=== PATIENT | female | born 1935 | race Caucasian/White ===

== ENCOUNTER → 2016-10-02 | Outpatient (CLI) | payer MEDICARE ==
[~2016-10-02] MED LIST: ASPE4PAD TOP; CALTTAB11 PO; CENTTAB PO; CLAR10CA3 PO; ECOT81TA5 PO; OSTETAB3 PO; TRAM50TA2 PO; TYLE650T35 PO; VITA100066 PO
--- NOTE | 2016-10-02 11:44 | REP ---
REASON: Preoperative assessment. COMPARISON: 09/23/2006 The heart size is borderline, essentially unchanged. The lung gomes are stable showing no evidence of an acute patchy parenchymal opacity or pleural effusion. The pleural angles are sharp. There is no change in the osseous structures. IMPRESSION: No evidence of acute cardiopulmonary disease or significant change from the prior exam with findings as described above. Signed by Matheus Chung DO 10/02/2016 12:24 P
[2016-10-02 11:53] LABS: INR 0.99; MEAN CORPUSCULAR HEMOGLOBIN 29.6 pg (27.0-33.0); MEAN CORPUSCULAR HGB CONC 32.8 g/dl (32.0-36.5); MEAN CORPUSCULAR VOLUME 90.4 fl (80.0-96.0); WHITE BLOOD COUNT 6.8 K/mm3 (4.0-10.0)
[2016-10-02 12:19] LABS: ALBUMIN 4.1 GM/DL (3.2-5.2); ALBUMIN/GLOBULIN RATIO 1.14 (1.00-1.93); ALKALINE PHOSPHATASE 85 U/L (45-117); ALT/SGPT 28 U/L (12-78); ANION GAP 7 MEQ/L (8-16); AST/SGOT 27 U/L (15-37); BILIRUBIN,TOTAL 0.5 MG/DL (0.2-1.0); BLOOD UREA NITROGEN 10 MG/DL (7-18); CALCIUM LEVEL 10.1 MG/DL (8.8-10.2); CARBON DIOXIDE LEVEL 28 MEQ/L (21-32); CHLORIDE LEVEL 102 MEQ/L (98-107); CREATININE FOR GFR 0.59 MG/DL (0.55-1.02); GLOMERULAR FILTRATION RATE > 60.0 (>32); GLUCOSE, FASTING 109 MG/DL (83-110); POTASSIUM SERUM 3.9 MEQ/L (3.5-5.1); SODIUM LEVEL 137 MEQ/L (136-145); TOTAL PROTEIN 7.7 GM/DL (6.4-8.2)
--- NOTE | 2016-10-02 20:55 | ECGEPIP ---
Stationary ECG Study [facility] Test Date: 2016-10-02 Pat Name: YAJAIRA DORADO Department: Room: - Gender: F [employer] Professional: KT : 1935 Requested By: Erick Mckeon Order Number: [id number] Reading MD: Elia Trujillo Measurements Intervals [place] Rate: 87 P: 68 OR: 154 QRS: 50 QRSD: 93 T: 14 QT: 361 QTc: 436 Interpretive Statements SINUS RHYTHM WITH SINUS ARRHYTHMIA MINIMAL VOLTAGE CRITERIA FOR LVH, CONSIDER NORMAL VARIANT Nonspecific ST-T abnormalities. Electronically Signed On 10-02-2016 20:55:03 EDT by Elia Trujillo
== END ==
LOC: M ADMPAT 09:04
PROVIDERS: ATTEND Orthopaedic Surgery
DX: Z79.899 Other long term (current) drug therapy (principal)

== ENCOUNTER 2016-10-13 07:58 | Inpatient (IN) | payer MEDICARE ==
[2016-10-02 09:47] VITALS: BP 142/78
[~2016-10-13] VITALS: Ht 154.9 cm; Wt 52.0 kg
[2016-10-13] VITALS (7 sets, daily range): BP systolic 122–198; BP diastolic 64–85
[2016-10-13] MEDS ORDERED: CLINDAMYCIN 600 MG in APPROPRIATE DILUENT 1 EA IV ONE (08:30)
[2016-10-13] MEDS ORDERED: LR 1,000 ML IV ONE (08:30)
[2016-10-13] MEDS ORDERED: VITA10006 PO (09:04)
[2016-10-13] MEDS ORDERED: MIDAZOLAM INJ 2 MG/2 ML VIAL (J2250) As Ordered ONE (09:32)
[2016-10-13] MEDS ORDERED: fentaNYL 100 MCG/2 ML INJECTION (J3010) As Ordered ONE ×2 (09:32→10:20)
[2016-10-13] MEDS ORDERED: TRANEXAMIC ACID 100 MG/ML 10ML VIAL As Ordered ONE ×2 (10:19→10:46)
[2016-10-13] MEDS ORDERED: BUPIVACAINE HCL 0.25% 30 ML VIAL As Ordered ONE (10:20)
[2016-10-13] MEDS ORDERED: EPINEPHrine INJ 1 MG/ML 1ML AMP As Ordered ONE (10:20)
[2016-10-13] MEDS ORDERED: ceFAZolin 1GM INJ (J0690) As Ordered ONE (10:20)
[2016-10-13] MEDS ORDERED: CLINDAMYCIN INJ 900MG/6ML VIAL As Ordered ONE (10:22)
[2016-10-13] MEDS ORDERED: PATIENT IS CURRENTLY ON AN ON-Q PAIN BUSTER PAIN RELIEF SYSTEM XX SCH ×2 (10:30→12:45)
[2016-10-13] MEDS ORDERED: ePHEDrine SULFATE 25 MG/5 ML(5MG/ML) SYRINGE As Ordered ONE (11:14)
[2016-10-13] MEDS ORDERED: PHENYLephrine HCL 500 MCG/5 ML (100MCG/ML) SYRINGE (J2370) As Ordered ONE (11:15)
[2016-10-13] MEDS ORDERED: PROPOFOL 200 MG/20 ML VIAL As Ordered ONE (11:32)
[2016-10-13] MEDS ORDERED: MORPHINE 1MG/ML IN 0.9% NACL 100ML IV BAG As Ordered ONE (12:20)
[2016-10-13] MEDS ORDERED: NALBUPHINE HCL 10 MG/ML AMP (J2300) IV PRN (12:45)
[2016-10-13] MEDS ORDERED: MORPHINE 1MG/ML IN 0.9% NACL 100ML IV BAG IV PRN (12:45)
[2016-10-13] MEDS ORDERED: ONDANSETRON 4MG/2ML VIAL (J2405) IV PRN ×3 (12:45)
[2016-10-13] MEDS ORDERED: diphenhydrAMINE INJ 50MG/ML VIAL (J1200) IV PRN (12:45)
[2016-10-13] MEDS ORDERED: NALOXONE INJ 0.4 MG/1 ML VIAL (J2310) IV PRN (12:45)
[2016-10-13] MEDS: LR 1,000 ML IV SCH (12:45)
[2016-10-13] MEDS ORDERED: LR 1,000 ML IV SCH (12:45)
[2016-10-13] MEDS ORDERED: EPIDURAL/PCA KEYS XX PRN (12:45)
[2016-10-13] MEDS ORDERED: FLEET ENEMA PR PRN (14:30)
[2016-10-13] MEDS ORDERED: diphenhydrAMINE 25 MG CAP PO PRN (16:30)
[2016-10-13] MEDS ORDERED: PERCOCET 5MG/325MG TAB PO PRN ×2 (16:30)
[2016-10-13] MEDS ORDERED: ONDANSETRON 4 MG TAB (S0181) PO PRN (16:30)
[2016-10-13] MEDS ORDERED: WARFARIN SOD 5 MG TAB PO ONE (17:00)
[2016-10-13] MEDS: CLINDAMYCIN 600 MG in APPROPRIATE DILUENT 1 EA IV SCH (18:34)
[2016-10-13] MEDS: ACETAMINOPHEN TAB 650MG DOSE (2X325MG) PO PRN (18:35)
[2016-10-13] MEDS: KETOROLAC 30 MG/ML VIAL (J1885) IV SCH (20:30)
[2016-10-14] MEDS: KETOROLAC 30 MG/ML VIAL (J1885) IV SCH ×3 (01:56→14:00)
[2016-10-14 02:00] VITALS: BP 158/72
[2016-10-14] MEDS: LR 1,000 ML IV SCH (02:05)
[2016-10-14] MEDS: CLINDAMYCIN 600 MG in APPROPRIATE DILUENT 1 EA IV SCH (02:42)
[2016-10-14 06:00] VITALS: BP 131/63
[2016-10-14 06:31] LABS: MEAN CORPUSCULAR HEMOGLOBIN 30.2 pg (27.0-33.0); MEAN CORPUSCULAR VOLUME 91.6 fl (80.0-96.0); RED CELL DISTRIBUTION WIDTH 15.1 % (11.5-14.5); WHITE BLOOD COUNT 8.8 K/mm3 (4.0-10.0)
[2016-10-14 06:40] LABS: INR 1.62
[2016-10-14 07:04] LABS: ANION GAP 4 MEQ/L (8-16); BLOOD UREA NITROGEN 11 MG/DL (7-18); CARBON DIOXIDE LEVEL 34 MEQ/L (21-32); CHLORIDE LEVEL 99 MEQ/L (98-107); CREATININE FOR GFR 0.67 MG/DL (0.55-1.02); GLOMERULAR FILTRATION RATE > 60.0 (>32); GLUCOSE, FASTING 120 MG/DL (83-110); POTASSIUM SERUM 4.1 MEQ/L (3.5-5.1); SODIUM LEVEL 137 MEQ/L (136-145)
[2016-10-14] MEDS ORDERED: traMADol 50 MG TAB PO PRN ×2 (07:15)
[2016-10-14] MEDS: MIRALAX *UNIT DOSE* 17GM PACKET PO SCH (08:57)
[2016-10-14] MEDS: SENOKOT S TAB PO SCH ×2 (08:58→20:18)
[2016-10-14] MEDS: MOM 30ML SUSPENSION UDC PO SCH (08:58)
[2016-10-14 10:00] VITALS: BP 125/59
[2016-10-14 14:00] VITALS: BP 141/65
[2016-10-14] MEDS ORDERED: WARFARIN SOD 5 MG TAB PO ONE (17:00)
[2016-10-14 22:00] VITALS: BP 146/70
[2016-10-15 06:00] VITALS: BP 130/60
[2016-10-15 06:50] LABS: MEAN CORPUSCULAR HEMOGLOBIN 30.2 pg (27.0-33.0); MEAN CORPUSCULAR HGB CONC 32.9 g/dl (32.0-36.5); MEAN CORPUSCULAR VOLUME 91.9 fl (80.0-96.0); WHITE BLOOD COUNT 10.3 K/mm3 (4.0-10.0)
[2016-10-15 06:58] LABS: INR 2.52
[2016-10-15] MEDS: MIRALAX *UNIT DOSE* 17GM PACKET PO SCH ×2 (09:00→09:36)
[2016-10-15] MEDS: MOM 30ML SUSPENSION UDC PO SCH (09:36)
[2016-10-15] MEDS: SENOKOT S TAB PO SCH ×2 (09:36→20:53)
[2016-10-15 14:00] VITALS: BP 131/63
[2016-10-15] MEDS: ACETAMINOPHEN TAB 650MG DOSE (2X325MG) PO PRN ×2 (15:50→20:53)
[2016-10-15 21:21] VITALS: O2SAT 96
[2016-10-15 22:00] VITALS: BP 115/55
[2016-10-16] MEDS: ACETAMINOPHEN TAB 650MG DOSE (2X325MG) PO PRN ×5 (03:54→23:53)
[2016-10-16 06:00] VITALS: BP 137/69
[2016-10-16 07:22] LABS: BASO % 0.4 % (0.0-1.0); EOS # 0.1 K/mm3 (0.0-0.50); EOS % 1.3 % (0.0-3.0); LARGE UNSTAINED CELL # 0.1 K/mm3 (0.0-0.4); LARGE UNSTAINED CELL % 1.2 % (0.0-4.0); LYMPH # 1.2 K/mm3 (1.5-4.5); LYMPH % 12.6 % (24.0-44.0); MEAN CORPUSCULAR HEMOGLOBIN 29.8 pg (27.0-33.0); MEAN CORPUSCULAR HGB CONC 32.7 g/dl (32.0-36.5); MEAN CORPUSCULAR VOLUME 91.2 fl (80.0-96.0); MONO # 0.6 K/mm3 (0.0-0.8); MONO % 5.8 % (0.0-5.0); NEUTROPHILS # 7.7 K/mm3 (1.8-7.7); NEUTROPHILS % 78.6 % (36.0-66.0); PLATELET COUNT, AUTOMATED 261 k/mm3 (150-450); RED CELL DISTRIBUTION WIDTH 14.7 % (11.5-14.5); WHITE BLOOD COUNT 9.8 K/mm3 (4.0-10.0)
[2016-10-16 07:29] LABS: INR 1.67
[2016-10-16] MEDS: MOM 30ML SUSPENSION UDC PO SCH (08:34)
[2016-10-16] MEDS: SENOKOT S TAB PO SCH ×2 (08:34→20:20)
[2016-10-16] MEDS: MIRALAX *UNIT DOSE* 17GM PACKET PO SCH (08:34)
[2016-10-16] MEDS ORDERED: COUM2.5T11 PO (09:25)
[2016-10-16] MEDS ORDERED: TRAM50TA2 PO (09:25)
[2016-10-16 14:00] VITALS: BP 143/91
[2016-10-16] MEDS ORDERED: WARFARIN SOD 5 MG TAB PO ONE (17:00)
[2016-10-16] MEDS ORDERED: WARFARIN SOD 2.5 MG TAB PO ONE (17:00)
[2016-10-16 22:00] VITALS: BP 141/65
[2016-10-17] MEDS: ACETAMINOPHEN TAB 650MG DOSE (2X325MG) PO PRN (04:48)
[2016-10-17 06:00] VITALS: BP 149/66
== END 2016-10-17 06:25 | DRG 470 ==
LOC: M OR 07:58 → M MS5PR 13:20
PROVIDERS: ADMIT Orthopaedic Surgery; ATTEND Orthopaedic Surgery
PROC: 0SRB02Z Replacement of Left Hip Joint with Metal on Polyethylene Synthetic Substitute, Open Approach (ICD-10-PCS; principal; 2016-10-13 10:30)
DX: M16.12 Unilateral primary osteoarthritis, left hip (principal); M87.852 Other osteonecrosis, left femur; E78.00 Pure hypercholesterolemia, unspecified; R41.82 Altered mental status, unspecified; M81.0 Age-related osteoporosis without current pathological fracture; Z88.0 Allergy status to penicillin; Z96.651 Presence of right artificial knee joint; Z88.2 Allergy status to sulfonamides; Z79.891 Long term (current) use of opiate analgesic; Z79.82 Long term (current) use of aspirin; Z79.899 Other long term (current) drug therapy

== ENCOUNTER → 2018-09-21 | Outpatient (REF) | payer MEDICARE ==
[~2018-09-21] MED LIST changes: +COUM2.5T17 PO; +VITA10006 PO
== END ==
LOC: M SFHCPLAZ 08:33
PROVIDERS: ATTEND Internal Medicine
DX: E78.00 Pure hypercholesterolemia, unspecified (principal)
CPT/HCPCS: 36415; 84445; G0463

== ENCOUNTER → 2018-10-11 | Outpatient (CLI) | payer MEDICARE ==
--- NOTE | 2018-10-12 09:17 | REP ---
THYROID UPTAKE AND SCAN: HISTORY: Hyperthyroidism. TECHNIQUE: 325.0 microcuries of I 123 sodium iodide is ingested and 2 and 24-hour uptake values acquired along with functional thyroid images. SCINTIGRAPHIC FINDINGS: The 2-hour uptake value is slightly elevated at 15.08% (6-12%). 24-hour uptake value is normal at 27.87% (25-35%). Functional images demonstrate normal sized symmetrically functioning thyroid lobes. No cold or warm lesion is seen. IMPRESSION: Borderline elevation of the 2-hour uptake. Otherwise normal thyroid scintigraphy and uptake. Electronically Signed by Frederick Ceja MD 10/12/2018 09:46 A
== END ==
LOC: M RAD 07:53
PROVIDERS: ATTEND Internal Medicine
DX: Z86.39 Personal history of other endocrine, nutritional and metabolic disease (principal)
CPT/HCPCS: 78012; A9516